=== PATIENT | male | born 1980 | race Caucasian/White ===

== ENCOUNTER 2022-12-21 16:25 | Emergency (ER) | payer SELFPAY ==
[~2022-12-21] VITALS: Ht 172.7 cm; Wt 80.7 kg
[2022-12-21 16:31] VITALS: BP 153/90
== END 2022-12-21 18:30 | disposition home or self-care (01) ==
LOC: ER 16:25
DX: R51.9 Headache, unspecified (principal); M54.2 Cervicalgia
CPT/HCPCS: J0780; J1100; J1200; J1885; J7030